=== PATIENT | male | born 1990 | race African-American/Black ===

== ENCOUNTER 2021-07-06 14:40 | Emergency (ER) | payer SELFPAY ==
[2021-07-06 14:52] VITALS: BP 124/70; PULSE 61; TEMP 98.9; BMI 24.2
[2021-07-06] MEDS ORDERED: MAG HYDROX/AL HYDROX/SIMETH 30 ML UNIT-DOSE CUP PO ONE (16:46)
[2021-07-06] MEDS ORDERED: ACETAMINOPHEN 325 MG TABLET (FP) PO ONE (16:46)
[2021-07-06] MEDS ORDERED: FAMOTIDINE 10 MG TABLET PO ONE (16:47)
[2021-07-06] MEDS ORDERED: FAMOTIDINE 20 MG TABLET ONE (17:09)
[2021-07-06] MEDS ORDERED: MAG HYDROX/AL HYDROX/SIMETH 30 ML UNIT-DOSE CUP ONE (17:09)
[2021-07-06] MEDS ORDERED: ACETAMINOPHEN 325 MG TABLET (FP) ONE (17:09)
[2021-07-06] MEDS ORDERED: SUCRALFATE 1 GM/10 ML UNIT DOSE CUPS PO ONE (18:15)
[2021-07-06 18:21] LABS: URINE APPEARANCE CLEAR; URINE BILIRUBIN NEGATIVE (NEGATIVE); URINE COLOR YELLOW; URINE GLUCOSE (UA) NEGATIVE (NEGATIVE); URINE KETONE NEGATIVE (NEGATIVE); URINE LEUK ESTERASE NEGATIVE (NEGATIVE); URINE NITRITE NEGATIVE (NEGATIVE); URINE PROTEIN NEGATIVE (NEGATIVE); URINE UROBILINOGEN 0.2 mg/dL (0.2-1.0)
[2021-07-06] MEDS ORDERED: SUCRALFATE 1 GM TABLET (FP) ONE (18:24)
== END 2021-07-06 19:38 | disposition home or self-care (01) ==
LOC: JER 14:40
DX: K52.9 Noninfective gastroenteritis and colitis, unspecified (principal)
CPT/HCPCS: 81003; 99283-25